=== PATIENT | female | born 1965 | race Caucasian/White ===

== ENCOUNTER 2018-03-13 10:20 | Outpatient (CLI) | payer BC ==
--- NOTE | 2018-03-18 10:58 | MMO ---
BILATERAL SCREENING MAMMOGRAM: Date: 03/13/18 COMPARISON: 03/12/17, 12/15/15, 07/08/14. HISTORY: Annual screening exam. This patient's mammogram was interpreted with the assistance of computer-aided detection. FINDINGS: Scattered fibroglandular changes of both breasts are noted. Intramammary nodes are present bilaterall y. These appear stable. No suspicious mass, microcalcifications, or other signs of malignancy. IMPRESSION: BIRADS 2: Benign Finding(s) POS: DEZ
== END 2018-03-13 10:21 | disposition home or self-care (01) ==
LOC: SCSMAMMO 10:20
PROVIDERS: ATTEND Family Medicine
DX: Z00.00 Encounter for general adult medical examination without abnormal findings (principal)
CPT/HCPCS: 36415; 77067; 84443

== ENCOUNTER 2019-06-11 10:05 | Outpatient (CLI) | payer BC ==
--- NOTE | 2019-06-11 10:32 | MMO ---
Bilateral MAMMO Bilat Screen [facility]. CLINICAL HISTORY: Patient is 54 years old and is seen for screening. The patient has no family history of breast cancer. The patient has no personal history of cancer. VIEWS: The views performed were: bilateral craniocaudal with tomosynthesis and bilateral mediolateral oblique with tomosynthesis. FILMS COMPARED: The present examination has been compared to prior imaging studies performed at [facility] on 03/13/2018, and at [facility] on 07/08/2014, 12/15/2015 and 03/12/2017. This study has been interpreted with the assistance of computer-aided detection. MAMMOGRAM FINDINGS: There are scattered fibroglandular densities. There are no suspicious masses, suspicious calcifications, or new areas of architectural distortion. IMPRESSION: THERE IS NO MAMMOGRAPHIC EVIDENCE OF MALIGNANCY. A ROUTINE FOLLOW-UP MAMMOGRAM IN 1 YEAR IS RECOMMENDED. THE RESULTS OF THIS EXAM WERE SENT TO THE PATIENT. ACR BI-RADS Category 1 - Negative MAMMOGRAPHY NOTE: 1. A negative mammogram report should not delay a biopsy if a dominant of clinically suspicious mass is present. 2. Approximately 10% to 15% of breast cancers are not detected by mammography. 3. Adenosis and dense breasts may obscure an underlying neoplasm. Reported by: NADIA MADRID MD Electonically Signed: [id number]
== END 2019-06-11 10:06 | disposition home or self-care (01) ==
LOC: BICMAMMO 10:05
PROVIDERS: ATTEND Family Medicine
DX: Z12.31 Encounter for screening mammogram for malignant neoplasm of breast (principal)
CPT/HCPCS: 77063; 77067

== ENCOUNTER 2021-01-04 11:04 | Outpatient (CLI) | payer BC | END 2021-01-04 11:05 | disposition home or self-care (01) | LOC: BICMAMMO 11:04 | PROVIDERS: ATTEND Family Medicine | DX: Z12.31 Encounter for screening mammogram for malignant neoplasm of breast (principal) | CPT/HCPCS: 77063; 77067 ==

== ENCOUNTER 2022-03-07 12:52 | Outpatient (CLI) | payer BC | END 2022-03-07 12:53 | disposition home or self-care (01) | LOC: BICMAMMO 12:52 | PROVIDERS: ATTEND Family Medicine | DX: Z12.31 Encounter for screening mammogram for malignant neoplasm of breast (principal); Z85.841 Personal history of malignant neoplasm of brain | CPT/HCPCS: 77063; 77067 ==

== ENCOUNTER 2025-05-09 15:04 | Outpatient (CLI) | payer BC | END 2025-05-09 15:05 | disposition home or self-care (01) | LOC: BICMAMMO 15:04 | PROVIDERS: ATTEND Family Medicine | DX: Z12.31 Encounter for screening mammogram for malignant neoplasm of breast (principal); Z85.841 Personal history of malignant neoplasm of brain | CPT/HCPCS: 77067 ==